=== PATIENT | female | born 1950 | race Caucasian/White ===

== ENCOUNTER 2019-09-05 11:33 | Day surgery (SDC) | payer MEDICARE, OTHER, SELFPAY ==
[2019-09-05 12:15] VITALS: BP 129/85; PULSE 78; RESP 15; TEMP 36.3; O2SAT 94; BMI 32.0
[2019-09-05] MEDS: SODIUM CHLORIDE 0.9% 1,000 ML 200 ML IV (12:34)
--- NOTE | 2019-09-05 13:54 | PM.HP.1 ---
History of Present Illness History of Present Illness Date Patient Seen: 09/05/19 Time Patient Seen: 13:54 Chief complaint: [id number] Narrative: This is a 68-year-old woman with history of screening colonoscopy greater than 10 years ago, who is overdue for her follow-up screening. She is not sure if anything was found on her prior colonoscopy. She has a grandmother with colon cancer, but no primary relatives with colon cancer, or known colon polyps. She denies any personal history of melena, hematochezia, unexplained weight loss, or unexplained abdominal pain. ROS Denies nausea, denies recent cold symptoms, has history of kidney stones, depression. Thirteen system review is otherwise negative other than as mentioned below and in HPI. PE: GENERAL: Well groomed and cooperative. Appears stated age. Answers questions promptly and appropriately. Vital signs noted. HENT: Normocephalic, atraumatic. Hearing intact. Oral mucosa is pink and moist. EYES: Conjunctiva pink, sclera white, no periorbital swelling. CARDIOVASCULAR: Regular rate. No pedal edema. RESPIRATORY: Non-tachypneic, breathing comfortably on room air. GASTROINTESTINAL: Abdomen soft and non-distended GENITALURINARY: No flank tenderness. MUSCULOSKELETAL: Equal tone and mass bilaterally. SKIN: Warm, dry, soft, appropriate color for ethnicity. No other lesions, rashes, or wounds. NEURO: Alert and Oriented X 3. No gross sensory deficits, or cognitive issues. PSYCH: Appropriate affect and mood. Patient History Family & Social History Social History: household members spouse Tobacco & Substance use: Smoking Status Former smoker alcohol intake current alcohol intake frequency holiday/special occasion Substance Use Type does not use Meds Home Medications and Allergies Home Medications Medication Instructions Recorded Confirmed Type atorvastatin [Lipitor] 40 mg PO QDAY #0 11/14/12 09/05/19 History bupropion HCl [Wellbutrin SR] 300 mg PO QDAY #0 11/14/12 09/05/19 History metoprolol succinate [Toprol XL] 50 mg PO QDAY #0 11/14/12 09/05/19 History Allergies Allergy/AdvReac Type Severity Reaction Status Date / Time No Known Drug Allergies Allergy Verified 09/05/19 12:13 Exam Vital Signs (past 8 hours): - 09/05/19 12:15 Temperature 97.4 F L Pulse Rate 78 Respiratory Rate 15 Blood Pressure 129/85 Pulse Oximetry 94 Oxygen Delivery Method Room Air Assessment & Plan Assessment and plan (1) At average risk for colon cancer: Current visit: Yes Status: Acute Assessment & Plan narrative: Risks and benefits of screening colonoscopy and possible polypectomy were discussed with the patient including risk of bleeding, perforation, need for additional procedures, risks of anesthesia. The patient desires to proceed with the colonoscopy procedure. Quality VTE Deep Vein Thrombosis/Pulmonary Embolism Present on Admission: No
[2019-09-05] MEDS: fentaNYL 250 MCG/5 ML INJ IV (13:58)
[2019-09-05] MEDS: MIDAZOLAM 5 MG/5 ML VIAL IV (13:59)
--- NOTE | 2019-09-05 14:18 | PM.OP.ENDO ---
Operative Date/Time/Diagnoses Date of procedure: 09/05/19 Time of procedure: 14:18 Pre-op diagnosis: Average risk for colon cancer Post-op diagnosis: other (Diverticulosis, no polyps or masses) Procedure & Clinicians Study performed: Screening colonoscopy Same procedure as scheduled: Yes Indications: Average risk colon cancer Surgeon: Huong Alaniz Procedure Notes SCOAP/Timeout: Performed Procedure in detail: The patient was brought to the room and placed in left lateral decubitus position with all bony prominences padded. A time-out was performed and then the patient was given procedural sedation starting with 2 mg of Versed and 100 mcg of fentanyl. A total of 5 mg of Versed and 150 micro g of fentanyl were used for the entire procedure. Vitals were monitored throughout the procedure and remained stable. Once adequately sedated the procedure was begun. A rectal exam was performed revealing no abnormalities. The colonoscope was then introduced to the rectum and advanced to the cecum in the usual fashion. The cecum was identified by the appendiceal orifice, the mucosal tri-fold, and the ileocecal valve. The scope was then retracted while rotating side to side and examining each mucosal fold. Mild diverticulosis seen in the sigmoid colon. At the conclusion of the procedure retroflexion was performed and small grade 1-2 internal hemorrhoids without stigmata of bleeding were seen. The scope was then withdrawn from the rectum the procedure was concluded. The patient tolerated the procedure well and was transferred to the PACU in stable condition. Scope withdrawal time: 8 Sedation minutes: 21 Findings: diverticulosis Specimen(s): none sent Complications: none Impression: Mild diverticulosis Post-procedure Recommendations: Colonscopy in 10 years Follow up: as needed Disposition: PACU
[2019-09-05 14:22] VITALS: BP 102/69; PULSE 69; RESP 16; TEMP 36.3; O2SAT 92
[2019-09-05 14:32] VITALS: BP 112/74; PULSE 82; RESP 16; O2SAT 94
[2019-09-05 14:48] VITALS: BP 120/82; PULSE 86; RESP 16; TEMP 36.8; O2SAT 96
== END 2019-09-05 14:56 | disposition home or self-care (01) ==
PROVIDERS: PCP Family Medicine; Referring Provider Family Medicine; Visit Provider Surgery
PROC: 0DJD8ZZ Inspection of Lower Intestinal Tract, Via Natural or Artificial Opening Endoscopic (ICD-10-PCS; CPT 45378; principal; 2019-09-05 13:00)
DX: Z12.11 Encounter for screening for malignant neoplasm of colon (principal); K57.30 Diverticulosis of large intestine without perforation or abscess without bleeding; K64.0 First degree hemorrhoids
CPT/HCPCS: G0121; 99152; J2250; J3010

== ENCOUNTER → 2024-05-12 | Outpatient (CLI) | payer MEDICARE, OTHER, SELFPAY ==
--- NOTE | 2024-05-12 13:26 | DI.CT.S_ITS ---
PROCEDURE: CT ABDOMEN PELVIS W CON INDICATIONS: LLQ ABD PAIN TECHNIQUE: After the administration of intravenous contrast, axial sections acquired from the lung bases to the pubic symphysis. Coronal and sagittal reformats were performed. For radiation dose reduction, the following was used: automated exposure control, adjustment of mA and/or kV according to patient size. COMPARISON: CT, IVP (ABD & PEL WWO CONTRAST), 04/13/2017, 8:18. FINDINGS: Image quality: Diagnostic. Lower Chest: No significant findings. ABDOMEN: Liver: No solid mass. Gallbladder: No radiopaque gallstones or wall thickening. Biliary ducts: No biliary dilation. Pancreas: No ductal dilation. Spleen: Size is within normal limits. Adrenal Glands: No adrenal nodules. Kidneys and Ureters: No hydronephrosis or obstructive nephrolithiasis on the right. Severe left hydronephrosis is present with hypoenhancement of the left renal cortex and some degree of left renal cortical atrophy appears superimposed. This pattern extends into the left ureter into the distal left ureter where a at the left hemipelvis a impacted 6 x 9 mm calculus is present best seen on series 2, image 118. This has an internal radiodensity of 735 Hounsfield units. Below this level the far distal left ureter and bladder appear normal. No solid mass. No complex renal cystic lesion which requires follow up. Stomach and Bowel: Normal colonic caliber, without significant wall thickening. Peritoneum: No abnormal intraperitoneal fluid. No free air. Ventral Wall: No significant ventral hernia. Abdominal Nodes: No retroperitoneal or mesenteric adenopathy by size criteria. Vessels: Aorta and inferior vena cava are normal in size. PELVIS: Pelvic Organs: Unremarkable. Bladder: No bladder wall thickening, accounting for underdistention. Pelvic Nodes: No enlarged lymph nodes. Miscellaneous: No inguinal hernias are seen. Bones: No aggressive osseous abnormality. IMPRESSION: 6 x 9 mm impacted distal left ureteral stone causing severe left hydronephrosis and hydroureter. This likely has been chronically present given the appearance of mild renal cortical atrophy associated with the obstruction. Hypoenhancement also noted at the cortex of the left kidney, in response to obstruction. A stone of this size generally will not pass without urologic intervention. Dictated by: Damion Martines M.D. on 05/12/2024 at 15:49 Approved by: Damion Martines M.D. on 05/12/2024 at 15:56
== END ==
PROVIDERS: PCP Family Medicine; Referring Provider Family Medicine; Visit Provider Family Medicine
DX: N13.2 Hydronephrosis with renal and ureteral calculous obstruction (principal); R10.32 Left lower quadrant pain
CPT/HCPCS: 74177; Q9967

== ENCOUNTER 2024-05-16 10:21 | Day surgery (SDC) | payer MEDICARE, OTHER, SELFPAY ==
--- NOTE | 2024-05-16 | DI.RAD.S_ITS ---
PROCEDURE: XR ABDOMEN 1V INDICATIONS: LEFT CYSTO URETER STENT TECHNIQUE: Low resolution intraoperative fluoroscopic spot films were obtained COMPARISON: None. FINDINGS: Intraoperative fluoroscopic spot films show left-sided hydronephrosis and sequential placement of a double-J ureteral stent IMPRESSION: Fluoroscopic guidance No acute abnormality. Approved by: Kirk Dorado M.D. on 05/16/2024 at 18:33
[2024-05-16 11:15] VITALS: BP 132/85; PULSE 76; RESP 16; TEMP 36.8; O2SAT 95; BMI 34.4
[2024-05-16] MEDS: LACTATED RINGERS 1,000 ML 42 ML IV (11:23)
--- NOTE | 2024-05-16 12:27 | PM.HP.1 ---
History of Present Illness History of Present Illness Date Patient Seen: 05/16/24 Time Patient Seen: 12:27 Chief complaint: Left ureteral stone Narrative: 73 y/o F presented to her PCP for evaluation of dysuria, urinary frequency/urgency and left flank pain. Of note, she has a h/o nephrolithiasis and has passed stones on her own as well as a h/o recurrent urinary tract infections. She was evaluated and noted to have a UCx positive for a UTI (Citrobacteri that was resistant to Ampicillin and Ancef) and was treated with culture directed antibiotics. She continued to suffer from persistent left flank pain and was further evaluated with a CT Abd/Pel that noted a 9mm left distal ureterolith with resultant upstream severe hydroureteronephrosis and cortical thinning of her left kidney, concerning for a chronic obstruction. Urology was then consulted regarding further management of her left ureterolith. [facility] Medical History HLD (hyperlipidemia) Social History household members: spouse Smoking Status: Former smoker alcohol intake: current Meds Home Medications and Allergies Home Medications Medication Instructions Recorded Confirmed Type atorvastatin 40 mg tablet (Lipitor) 40 mg PO QDAY ##0 11/14/12 05/16/24 History bupropion HCl 150 mg tablet,12 hr 300 mg PO QDAY ##0 11/14/12 05/16/24 History sustained-release (Wellbutrin SR) metoprolol succinate 50 mg 50 mg PO QDAY ##0 11/14/12 05/16/24 History tablet,extended release 24 hr (Toprol XL) Allergies Allergy/AdvReac Type Severity Reaction Status Date / Time No Known Drug Allergies Allergy Verified 05/16/24 10:58 Review of Systems Review of Systems Narrative: CONSTITUTIONAL: Denies weight loss, fevers, chills. HEENT: Denies change in vision, hearing. RESP: Denies SOB, cough. CV: Denies palpations, CP. GI: Denies abdominal pain, nausea, vomiting, diarrhea. : Denies dysuria, hematuria, inability to void. MSK: Denies myalgia, joint pain. SKIN: Denies rash, pruritus. NEURO: Denies headache, syncope. PSYCH: Denies recent change in mood, anxiety, depression. Exam Vital Signs (past 8 hours): - 05/16/24 11:15 Temperature 98.2 F Pulse Rate 76 Respiratory Rate 16 Blood Pressure 132/85 Pulse Oximetry 95 Oxygen Delivery Method Room Air Oxygen Delivery Method Room Air Narrative Exam Narrative: GEN: Alert and oriented X3. No acute distress. Well-nourished. EYES: PERRLA, EOMI. HENT: Moist mucus membranes, no scleral icterus, normal neck ROM. RESP: Unlabored breathing, equal rise and fall of chest bilaterally, no cyanosis appreciated. CV: No peripheral edema, unremarkable heart rate. ABD: Soft, non-tender, non-distended, no palpable masses. EXT: No edema, clubbing or cyanosis. SKIN: No rashes or lesions. NEURO: No focal neurologic deficits, CN II-XII grossly intact. PSYCH: Cooperative, appropriate mood and affect. Assessment & Plan Assessment and plan (1) Left ureteral calculus: Status: Acute Plan: 73 y/o F recently diagnosed w/ a 7mm left distal ureterolith and resultant upstream severe hydroureteronephrosis w/ resultant cortical thinning of her left kidney concerning for a chronic obstruction. Discussed treatment options to include continued medical expulsion therapy (not recommended) vs cystoscopy, ureteroscopy, laser lithotripsy with ureteral stent placement. Discussed risks of the procedure to include pain, bleeding, infection, injury to urethra/bladder/ureter, inability to access the ureter requiring discussion with Interventional Radiology regarding a possible ureteral stent placement in an antegrade fashion vs a possible nephroureteral stent and/or percutaneous nephrostomy tube, urinary tract infection, inability to remove all of the stone in one setting, need for emergent open repair of bladder and/or ureter, need for multiple ureteroscopic interventions necessary to render the patient stone free. Informed consent was obtained today. Time-Based Coding :: [TOTAL MINUTES] spent with patient and on the chart (including review of chart, obtaining history, exam, reviewing outside data, placing orders, documenting exam and treatment plan, and counseling patient) on [DATE]. PROFEE Charge Codes Inpatient/observation care including admit and discharge same day: 12725
[2024-05-16] MEDS: ACETAMINOPHEN 325 MG TABLET 975 MG PO (12:31)
[2024-05-16] MEDS: levoFLOXacin 500 MG/100 ML PIGGYBACK 100 MG IV (13:01)
--- NOTE | 2024-05-16 13:32 | P.OP_ITS ---
Procedure & Clinicians Procedure: Cystoscopy Left retrograde ureteropyelogram Left ureteral stent placement Same procedure as scheduled: No (Unable to perform left ureteroscopy due to ongoing urinary tract infection) Indications: 73 y/o F recently diagnosed w/ a 7mm left distal ureterolith and resultant upstream severe hydroureteronephrosis w/ resultant cortical thinning of her left kidney concerning for a chronic obstruction. Of note, she was diagnosed with a urinary tract infection a few weeks ago and treated with UCx directed antibiotics. Surgeon: Ricky Currie Click Yes if Unassisted: Yes Anesthesia Type: General Operative Notes Findings: Cloudy urine within bladder and changes consistent with an active urinary tract infection. Severe left hydronephrosis. Closure Type: not applicable Specimen(s): none sent Estimated Blood Loss (mL): 1 Procedure in detail: Patient was identified in the preoperative holding area and consent confirmed. She was then brought to the operating room where general anesthesia was induced.? She was then placed in the low lithotomy position. She was then prepped and draped in the usual sterile fashion. A surgical timeout was conducted and all were in agreement. Access to the bladder was obtained via a 21Fr cystoscope.? Cloudy urine was immediately noted within the bladder.? The left ureteral orifice was easily visualized and a 0.035 sensor tip ureteral guidewire was advanced through the 5Fr ureteral catheter and into the left renal collecting system.? The ureteral guidewire was removed and a retrograde pyelogram was performed which noted sever e left hydronephrosis.? The ureteral guidewire was readvanced through the ureteral catheter and into the left renal pelvis.? The ureteral catheter was then removed.? A 6Fr multi-length JJ ureteral stent without strings was then advanced over the ureteral guidewire and into the left renal collecting system.? Upon removal of the ureteral guidewire, a good curl was appreciated within the left renal pelvis upon fluoroscopy and visually within the bladder.? The bladder was then drained and the cystoscope was removed.? Anesthesia was reversed, she was extubated in the OR and transferred to the PACU in stable condition for recovery. Complications: none Post-operative Condition: stable Disposition: PACU Plan for aftercare: Discharge home from PACU. Will treat with a 7 day course of antibiotics and have her return to the OR in a few weeks to perform a cystoscopy, left ureteroscopy, laser lithotripsy and left ureteral stent exchange.
[2024-05-16 13:33] VITALS: BP 136/68; PULSE 69; RESP 11; TEMP 36.1; O2SAT 98
[2024-05-16 13:38] VITALS: BP 137/71; PULSE 69; RESP 13; O2SAT 97
[2024-05-16 13:43] VITALS: BP 108/65; PULSE 74; RESP 14; O2SAT 96
[2024-05-16 13:49] VITALS: BP 142/73; PULSE 68; RESP 12; TEMP 36.4; O2SAT 95
[2024-05-16 13:56] VITALS: BP 132/88; PULSE 71; RESP 16; TEMP 36.6; O2SAT 98
--- NOTE | 2024-05-16 14:05 | SUR.OPER ---
Lithotomy on padded OR bed, head on pillow, arms secured on padded arm boards at <90 degrees abduction. Legs secured in padded yellow fins stirrups. Safety strap across abdomen. Upper body stormy hugger in place.
[2024-05-16] MEDS: iopamidoL 30 ML VIAL INJ (14:24)
== END 2024-05-16 14:46 | disposition home or self-care (01) ==
PROVIDERS: PCP Family Medicine; Referring Provider Urology; Visit Provider Urology
PROC: 0TF78ZZ Fragmentation in Left Ureter, Via Natural or Artificial Opening Endoscopic (ICD-10-PCS; CPT 52353; principal; 2024-05-16 12:00)
DX: N13.2 Hydronephrosis with renal and ureteral calculous obstruction (principal); N30.90 Cystitis, unspecified without hematuria; Z53.09 Procedure and treatment not carried out because of other contraindication
CPT/HCPCS: 52332; 52351; 74018; 76000; J1100; J1956; J2405; J2704; J3010; Q9967

== ENCOUNTER → 2024-05-30 10:50 | Outpatient (CLI) | payer MEDICARE, OTHER, SELFPAY | PROVIDERS: PCP Family Medicine; Referring Provider Urology; Visit Provider Urology | DX: N20.1 Calculus of ureter (principal) | CPT/HCPCS: 87086 ==

== ENCOUNTER 2024-06-09 06:17 | Day surgery (SDC) | payer MEDICARE, OTHER, SELFPAY ==
[2024-06-06 11:28] VITALS: BMI 33.6
--- NOTE | 2024-06-09 | DI.RAD.S_ITS ---
PROCEDURE: XR ABDOMEN 1V INDICATIONS: LT STENT PLACEMENT TECHNIQUE: 2 intra-operative images acquired by the Urology service. COMPARISON: [facility], CR, XR ABDOMEN 1V, 05/16/2024, 13:16. FINDINGS: There is interval worsened left-sided hydronephrosis suggest clinical correlation. There is presence of a double-J left ureteral stent. IMPRESSION: Fluoro guidance was provided intraoperatively for retrograde urogram and left-sided ureteral stent placement/exchange. Dictated by: João Alcocer M.D. on 06/09/2024 at 11:02 Approved by: João Alcocer M.D. on 06/09/2024 at 11:04
[2024-06-09 06:51] VITALS: BP 150/86; PULSE 71; RESP 17; TEMP 36.7; O2SAT 96; BMI 35.2
[2024-06-09] MEDS: LACTATED RINGERS 1,000 ML 21 ML IV (06:55)
[2024-06-09] MEDS: ACETAMINOPHEN 325 MG TABLET 975 MG PO (06:57)
--- NOTE | 2024-06-09 07:22 | SUR.OPER ---
Lithotomy on padded OR bed, head on pillow, arms secured on padded arm boards at <90 degrees abduction. Legs secured in padded yellow fins stirrups.
--- NOTE | 2024-06-09 07:42 | PM.PREOP ---
Pre-operative Note COVID-19 COVID-19 status: Not tested Interval Note History & Physical reviewed/Exam performed by Physician: Yes Changes to H&P: No
[2024-06-09] MEDS: levoFLOXacin 500 MG/100 ML PIGGYBACK 100 MG IV (07:58)
[2024-06-09] MEDS: iopamidoL 30 ML VIAL INJ (08:08)
[2024-06-09 08:55] VITALS: BP 134/73; PULSE 67; RESP 10; TEMP 36.3; O2SAT 99
[2024-06-09 09:00] VITALS: BP 133/77; PULSE 66; RESP 12; O2SAT 96
[2024-06-09 09:05] VITALS: BP 133/74; PULSE 70; RESP 12; O2SAT 95
--- NOTE | 2024-06-09 09:05 | PM.OP.1 ---
Procedure & Clinicians Procedure: Cystoscopy Left retrograde ureteropyelogram Left ureteroscopy, laser lithotripsy Left ureteral stent exchange Intraoperative interpretation of fluoroscopic images, total time < 1 hour Same procedure as scheduled: Yes Indications: 73 y/o F recently diagnosed w/ a 9mm left distal ureterolith and resultant upstream severe hydroureteronephrosis w/ resultant cortical thinning of her left kidney concerning for a chronic obstruction. She is now s/p a cystoscopy w/ left ureteral stent placement on 16 May 2024 secondary to findings consistent with an active urinary tract infection at the time of planned left ureteroscopy. Discussed the need for definitive stone management via a cystoscopy, left ureteroscopy with laser lithotripsy and left ureteral stent exchange. Surgeon: Ricky Currie Click Yes if Unassisted: Yes Anesthesia Type: General Operative Notes Findings: Impacted left distal ureteral stone Closure Type: not applicable Specimen(s): other (kidney stone) Estimated Blood Loss (mL): 5 Blood products transfused: none Procedure in detail: Patient was identified in the preoperative holding area and consent confirmed. She was then brought to the operating room where general anesthesia was induced.? She was placed in the low lithotomy position. She was then prepped and draped in the usual sterile fashion. A surgical timeout was conducted and all were in agreement. Access to the bladder was obtained via a 30 degree cystoscope.? Complete cystoscopy was then performed and no concerning bladder masses or lesions were appreciated.? Bilateral ureteral orifices were easily identified and noted to be orthotopic in nature.? The previously placed left ureteral stent was externalized and a 0.035 sensor tip ureteral guidewire was advanced through the stent and into the left renal pelvis. The semirigid ureteroscope was then advanced into the distal left ureter where a large stone was noted, consistent with CT findings. A 200 micron laser fiber was then utilized to perform laser lithotripsy.? All stone fragments >1mm in size were removed via the stone basket and sent for chemical analysis.? The ureter was then directly visualized upon removal of the ureteroscope and noted to be stone free, however, the site of stone impacted was noted to have the previously placed ureteral guidewire through a submucosal tunnel secondary to the aforementioned edema from impaction. Therefore, the ureteral guidewire was removed and readvanced through the ureteroscope and into true lumen. A 5Fr ureteral catheter was then advanced over the ureteral guidewire and into the left renal pelvis and the ureteroscope was removed. A retrograde pyelogram was performed and normal left renal architecture was noted without contrast extravasation. The ureteral guidewire was advanced through the ureteral catheter and into the left renal pelvis and the ureteral catheter was removed.? A 6Fr multi-length JJ ureteral stent without string was then advanced over the ureteral guidewire.? Upon removal of the guidewire, a good curl was noted in the left renal pelvis and the bladder using fluoroscopy.? The bladder was then drained.? Anesthesia was reversed, she was extubated in the OR and transferred to the PACU in stable condition for recovery. Complications: none Post-operative Condition: stable Disposition: PACU Plan for aftercare: Discharge home from PACU. Will return to Urology clinic in late Jun 2024 to have her left ureteral stent removed.
[2024-06-09 09:10] VITALS: BP 144/55; PULSE 66; RESP 13; TEMP 36.1; O2SAT 94
[2024-06-09 09:16] VITALS: BP 132/82; PULSE 64; RESP 12; TEMP 36.1; O2SAT 94
== END 2024-06-09 09:31 | disposition home or self-care (01) ==
PROVIDERS: PCP Family Medicine; Referring Provider Urology; Visit Provider Urology
PROC: (CPT 52356; principal; 2024-06-09 07:45)
DX: N20.1 Calculus of ureter (principal); Z87.440 Personal history of urinary (tract) infections
CPT/HCPCS: 52356; 74018; 76000; 82365; J1100; J1885; J1956; J2405; J2704; Q9967

== ENCOUNTER → 2024-07-04 09:01 | Outpatient (CLI) | payer MEDICARE, OTHER, SELFPAY | PROVIDERS: PCP Family Medicine; Visit Provider Urology | DX: Z96.0 Presence of urogenital implants (principal); Z87.442 Personal history of urinary calculi | CPT/HCPCS: 87086 ==

== ENCOUNTER → 2024-09-06 10:43 | Outpatient (CLI) | payer MEDICARE, OTHER, SELFPAY ==
--- NOTE | 2024-09-06 10:45 | DI.US.S_ITS ---
PROCEDURE: US RENAL COMPLETE INDICATIONS: POST LEFT URETEROSCOPY STENT. TECHNIQUE: Real-time scanning was performed of the kidneys and bladder, with image documentation. .COMPARISON: [facility], CT, CT ABDOMEN PELVIS W CON, 05/12/2024, 15:15. FINDINGS: Kidneys: Kidneys are normal in size. Right kidney measures 12.3 cm long; left kidney measures 13.5 cm long. Right renal cortical thickness is 1.6 cm; left renal cortical thickness is 1.4 cm. Renal cortical echotexture is normal. Mild to moderate left hydronephrosis which mildly improves postvoid. Calcification of the calyces. Largest calcification measures 11 x 8 mm at the inferior pole. No right hydronephrosis or nephrolithiasis No suspicious solid mass lesions. Bladder: Pre-void bladder volume is 329 mL. Post-void residual is 32 mL. Pre-void images demonstrate no intraluminal masses or stones. On pre-void images, bilateral ureteral jets are noted with color Doppler interrogation. (Of note, ureteral jets may not be detectable in up to 25% of cases due to insufficient differences in specific gravity between ureteral and bladder urine). Miscellaneous: No free pelvic fluid. IMPRESSION: [id number] left hydronephrosis which mildly improved on postvoid imaging. Calcifications of the left renal calyces, may represent early nephrocalcinosis. Recommend clinical correlation. No right hydronephrosis or nephrolithiasis. Dictated by: Donavan Umanzor M.D. on 09/06/2024 at 15:22 Approved by: Donavan Umanzor M.D. on 09/06/2024 at 15:25
== END ==
PROVIDERS: PCP Family Medicine; Referring Provider Urology; Visit Provider Urology
DX: N13.30 Unspecified hydronephrosis (principal); Z87.442 Personal history of urinary calculi; Z96.0 Presence of urogenital implants
CPT/HCPCS: 76770